=== PATIENT | male | born 1935 | race Caucasian/White ===

== ENCOUNTER 2018-05-12 08:26 | Outpatient (CLI) | payer OTHER | END 2018-05-12 08:41 | disposition home or self-care (01) | LOC: TOM 08:26 | DX: R10.84 Generalized abdominal pain (principal); K59.00 Constipation, unspecified; R19.5 Other fecal abnormalities ==

== ENCOUNTER 2022-02-14 01:53 | Inpatient (IN) | payer OTHER ==
[~2022-02-14] VITALS: Ht 170.2 cm; Wt 81.6 kg
[2022-02-14] MEDS ORDERED: AVAPRO75 MG (02:07)
[2022-02-17] MEDS ORDERED: SEROQUEL25 MG PO (09:40)
[2022-02-17] MEDS ORDERED: CIPRO500 MG PO (09:40)
== END 2022-02-17 11:03 | disposition home or self-care (01) | DRG 690 ==
LOC: ER 01:53 → MEDJ 19:11 → MEDI 19:11
PROVIDERS: ADMIT Internal Medicine; ATTEND Internal Medicine
PROC: BW28ZZZ Computerized Tomography (CT Scan) of Head (ICD-10-PCS; principal; 2022-02-14)
DX: N39.0 Urinary tract infection, site not specified (principal); G93.40 Encephalopathy, unspecified; F33.8 Other recurrent depressive disorders; F05 Delirium due to known physiological condition; N17.8 Other acute kidney failure; R65.10 Systemic inflammatory response syndrome (SIRS) of non-infectious origin without acute organ dysfunction; E87.5 Hyperkalemia; D72.828 Other elevated white blood cell count; B96.1 Klebsiella pneumoniae [K. pneumoniae] as the cause of diseases classified elsewhere; R41.82 Altered mental status, unspecified; Z20.822 Contact with and (suspected) exposure to COVID-19